=== PATIENT | male | born 1935 | race Caucasian/White ===

== ENCOUNTER 2020-07-02 11:15 | Inpatient (IN) | payer MEDICARE ==
[2020-07-02 12:00] LABS: #Monocytes 1.9 10x3/uL (0.0-1.1); #Neutrophils 9.8 10x3/uL (1.5-8.4); %Basophils 0.2 % (0.0-2.0); %Lymphocytes 3.6 % (18.0-47.0); %Monocytes 15.8 % (0.0-10.0); Hemoglobin 10.9 g/dL (13.5-17.5); Mean Corpuscular HGB CONC 33.6 g/dL (32.0-36.0); Mean Corpuscular Hemoglobin 29.2 pg (27.0-33.0); Mean Corpuscular Volume 86.9 fl (81.2-95.1); Mean Platelet Volume 10.6 fl (7.4-10.4); Platelet Count 167 10x3/uL (150-450); RBC Distribution Width 13.5 % (11.5-14.5); Red Blood Cell (RBC) Count 3.73 10x6/uL (4.32-5.72); White Blood Cell (WBC) Count 12.2 10x3/uL (3.5-10.5)
[2020-07-02 12:14] LABS: ALT (SGPT) 19 U/L (8-55); AST (SGOT) 22 U/L (5-34); Albumin 3.8 g/dL (3.4-4.8); Alkaline Phosphatase 69 U/L (40-110); Anion Gap 12 mmol/L (10-20); BUN (Urea Nitrogen) 16 mg/dL (8.4-25.7); Bilirubin, Total 1.6 mg/dL (0.2-1.2); CK (CPK) 256 U/L (30-200); Calc. Creatinine Clearance 0 mL/min (70-130); Calcium 8.3 mg/dL (7.8-10.44); Carbon Dioxide 22 mmol/L (23-31); Chloride 104 mmol/L (98-107); Globulin 2.1 g/dL (2.4-3.5); Glucose 155 mg/dL (83-110); Magnesium 2.1 mg/dL (1.6-2.6); Potassium 3.5 mmol/L (3.5-5.1); Protein, Total 5.9 g/dL (5.8-8.1); Sodium 134 mmol/L (136-145)
[2020-07-02] MEDS ORDERED: Senokot S 8.6-50 MG TAB PO PRN (14:20)
[2020-07-02] MEDS ORDERED: Ondansetron ODT 4 MG TAB PO PRN (14:20)
[2020-07-02 17:50] VITALS: BMI 21.2
[2020-07-02] MEDS: Famotidine 20 MG TAB PO SCH (22:05)
[2020-07-03 05:46] LABS: #Monocytes 2.3 10x3/uL (0.0-1.1); %Basophils 0.3 % (0.0-2.0); %Eosinophils 0.3 % (0.0-6.0); %Lymphocytes 7.7 % (18.0-47.0); %Monocytes 20.1 % (0.0-10.0); %Neutrophils 71.1 % (40.0-75.0); Hemoglobin 10.1 g/dL (13.5-17.5); Mean Corpuscular HGB CONC 32.7 g/dL (32.0-36.0); Mean Corpuscular Hemoglobin 28.8 pg (27.0-33.0); Mean Platelet Volume 10.2 fl (7.4-10.4); Platelet Count 158 10x3/uL (150-450); RBC Distribution Width 13.6 % (11.5-14.5); Red Blood Cell (RBC) Count 3.51 10x6/uL (4.32-5.72); White Blood Cell (WBC) Count 11.3 10x3/uL (3.5-10.5)
[2020-07-03 06:02] LABS: Anion Gap 13 mmol/L (10-20); BUN (Urea Nitrogen) 12 mg/dL (8.4-25.7); Calc. Creatinine Clearance 88 mL/min (70-130); Calcium 8.3 mg/dL (7.8-10.44); Carbon Dioxide 21 mmol/L (23-31); Chloride 104 mmol/L (98-107); Glucose 102 mg/dL (83-110); Potassium 3.2 mmol/L (3.5-5.1); Sodium 135 mmol/L (136-145)
[2020-07-03] MEDS ORDERED: Potassium Chloride 20 MEQ TAB PO SCH (07:30)
[2020-07-03] MEDS ORDERED: Enoxaparin Sodium 40 MG/0.4 ML SYRINGE SC SCH (09:00)
[2020-07-03] MEDS: Potassium Chloride 10 MEQ TAB PO SCH (09:18)
[2020-07-03] MEDS: Famotidine 20 MG TAB PO SCH ×2 (09:18→20:08)
[2020-07-03] MEDS: Atorvastatin Calcium 20 MG TAB PO SCH (09:18)
[2020-07-03] MEDS: Digoxin 0.25 MG TAB PO SCH (09:18)
[2020-07-03] MEDS: Furosemide 20 MG TAB PO SCH (09:18)
[2020-07-03] MEDS: Apixaban 5 MG TAB PO SCH ×2 (09:18→20:08)
[2020-07-04 05:54] LABS: #Eosinphils 0.1 10x3/uL (0.0-0.5); #Monocytes 1.7 10x3/uL (0.0-1.1); #Neutrophils 5.5 10x3/uL (1.5-8.4); %Basophils 0.5 % (0.0-2.0); %Eosinophils 0.8 % (0.0-6.0); %Lymphocytes 11.4 % (18.0-47.0); %Monocytes 20.5 % (0.0-10.0); %Neutrophils 66.1 % (40.0-75.0); Hemoglobin 10.1 g/dL (13.5-17.5); Mean Corpuscular HGB CONC 32.9 g/dL (32.0-36.0); Mean Corpuscular Hemoglobin 28.6 pg (27.0-33.0); Mean Platelet Volume 10.4 fl (7.4-10.4); Platelet Count 188 10x3/uL (150-450); RBC Distribution Width 13.7 % (11.5-14.5); Red Blood Cell (RBC) Count 3.53 10x6/uL (4.32-5.72); White Blood Cell (WBC) Count 8.4 10x3/uL (3.5-10.5)
[2020-07-04 06:01] LABS: Anion Gap 11 mmol/L (10-20); BUN (Urea Nitrogen) 12 mg/dL (8.4-25.7); Calc. Creatinine Clearance 84 mL/min (70-130); Calcium 8.4 mg/dL (7.8-10.44); Carbon Dioxide 25 mmol/L (23-31); Chloride 104 mmol/L (98-107); Glucose 97 mg/dL (83-110); Potassium 3.5 mmol/L (3.5-5.1); Sodium 136 mmol/L (136-145)
[2020-07-04] MEDS: Apixaban 5 MG TAB PO SCH ×2 (08:42→20:25)
[2020-07-04] MEDS: Digoxin 0.25 MG TAB PO SCH (08:42)
[2020-07-04] MEDS: Atorvastatin Calcium 20 MG TAB PO SCH (08:42)
[2020-07-04] MEDS: Potassium Chloride 10 MEQ TAB PO SCH (08:43)
[2020-07-04] MEDS: Furosemide 20 MG TAB PO SCH (08:43)
[2020-07-04] MEDS: Famotidine 20 MG TAB PO SCH ×2 (08:43→20:26)
[2020-07-04] MEDS: Acetaminophen 325 MG TAB PO PRN ×2 (11:53→20:45)
[2020-07-05 05:44] LABS: #Basophils 0.1 10x3/uL (0.0-0.2); #Eosinphils 0.2 10x3/uL (0.0-0.5); #Monocytes 1.1 10x3/uL (0.0-1.1); #Neutrophils 5.1 10x3/uL (1.5-8.4); %Basophils 0.6 % (0.0-2.0); %Eosinophils 2.7 % (0.0-6.0); %Lymphocytes 15.1 % (18.0-47.0); %Monocytes 14.8 % (0.0-10.0); %Neutrophils 66.3 % (40.0-75.0); Hemoglobin 10.1 g/dL (13.5-17.5); Mean Corpuscular HGB CONC 32.4 g/dL (32.0-36.0); Mean Corpuscular Hemoglobin 28.7 pg (27.0-33.0); Mean Corpuscular Volume 88.6 fl (81.2-95.1); Mean Platelet Volume 10.5 fl (7.4-10.4); Platelet Count 217 10x3/uL (150-450); RBC Distribution Width 13.8 % (11.5-14.5); Red Blood Cell (RBC) Count 3.52 10x6/uL (4.32-5.72); White Blood Cell (WBC) Count 7.7 10x3/uL (3.5-10.5)
[2020-07-05 06:01] LABS: Anion Gap 10 mmol/L (10-20); BUN (Urea Nitrogen) 15 mg/dL (8.4-25.7); Calc. Creatinine Clearance 75 mL/min (70-130); Calcium 8.5 mg/dL (7.8-10.44); Carbon Dioxide 26 mmol/L (23-31); Chloride 106 mmol/L (98-107); Glucose 100 mg/dL (83-110); Potassium 3.6 mmol/L (3.5-5.1); Sodium 138 mmol/L (136-145)
[2020-07-05] MEDS: Atorvastatin Calcium 20 MG TAB PO SCH (08:01)
[2020-07-05] MEDS: Famotidine 20 MG TAB PO SCH ×2 (08:01→20:21)
[2020-07-05] MEDS: Furosemide 20 MG TAB PO SCH (08:01)
[2020-07-05] MEDS: Apixaban 5 MG TAB PO SCH ×2 (08:01→20:21)
[2020-07-05] MEDS: Potassium Chloride 10 MEQ TAB PO SCH (08:01)
[2020-07-05] MEDS: Digoxin 0.25 MG TAB PO SCH (08:36)
[2020-07-05] MEDS: Acetaminophen 325 MG TAB PO PRN (15:35)
[2020-07-05 15:53] LABS: SARS-CoV-2 PCR by NAA Not Detected (NotDetected)
[2020-07-06] MEDS: Acetaminophen 325 MG TAB PO PRN (03:49)
[2020-07-06 05:04] LABS: #Basophils 0.1 10x3/uL (0.0-0.2); #Eosinphils 0.2 10x3/uL (0.0-0.5); #Monocytes 1.3 10x3/uL (0.0-1.1); #Neutrophils 7.4 10x3/uL (1.5-8.4); %Basophils 0.5 % (0.0-2.0); %Lymphocytes 8.2 % (18.0-47.0); %Monocytes 12.9 % (0.0-10.0); %Neutrophils 75.7 % (40.0-75.0); Mean Corpuscular HGB CONC 32.8 g/dL (32.0-36.0); Mean Corpuscular Hemoglobin 28.7 pg (27.0-33.0); Mean Corpuscular Volume 87.4 fl (81.2-95.1); Mean Platelet Volume 10.5 fl (7.4-10.4); Platelet Count 246 10x3/uL (150-450); RBC Distribution Width 13.8 % (11.5-14.5); Red Blood Cell (RBC) Count 3.49 10x6/uL (4.32-5.72); White Blood Cell (WBC) Count 9.7 10x3/uL (3.5-10.5)
[2020-07-06 05:17] LABS: Anion Gap 13 mmol/L (10-20); BUN (Urea Nitrogen) 15 mg/dL (8.4-25.7); Calc. Creatinine Clearance 83 mL/min (70-130); Calcium 8.4 mg/dL (7.8-10.44); Carbon Dioxide 25 mmol/L (23-31); Chloride 104 mmol/L (98-107); Glucose 115 mg/dL (83-110); Magnesium 2.1 mg/dL (1.6-2.6); Potassium 3.8 mmol/L (3.5-5.1); Sodium 138 mmol/L (136-145)
[2020-07-06] MEDS: Potassium Chloride 10 MEQ TAB PO SCH (10:05)
[2020-07-06] MEDS: Metoprolol Tartrate 25 MG TAB PO SCH ×2 (10:06→20:22)
[2020-07-06] MEDS: Furosemide 20 MG TAB PO SCH (10:06)
[2020-07-06] MEDS: Famotidine 20 MG TAB PO SCH ×2 (10:06→20:22)
[2020-07-06] MEDS: Atorvastatin Calcium 20 MG TAB PO SCH (10:06)
[2020-07-06] MEDS: Apixaban 5 MG TAB PO SCH ×2 (10:06→20:22)
[2020-07-07 06:04] LABS: Anion Gap 12 mmol/L (10-20); BUN (Urea Nitrogen) 12 mg/dL (8.4-25.7); Calc. Creatinine Clearance 78 mL/min (70-130); Calcium 8.8 mg/dL (7.8-10.44); Carbon Dioxide 28 mmol/L (23-31); Chloride 102 mmol/L (98-107); Glucose 94 mg/dL (83-110); Magnesium 2.3 mg/dL (1.6-2.6); Potassium 4.1 mmol/L (3.5-5.1); Sodium 138 mmol/L (136-145)
[2020-07-07] MEDS: Metoprolol Tartrate 25 MG TAB PO SCH ×2 (09:16→20:54)
[2020-07-07] MEDS: Furosemide 20 MG TAB PO SCH (09:16)
[2020-07-07] MEDS: Potassium Chloride 10 MEQ TAB PO SCH (09:18)
[2020-07-07] MEDS: Atorvastatin Calcium 20 MG TAB PO SCH (09:18)
[2020-07-07] MEDS: Apixaban 5 MG TAB PO SCH ×2 (09:18→20:54)
[2020-07-07] MEDS: Famotidine 20 MG TAB PO SCH ×2 (09:18→20:54)
[2020-07-08 05:37] LABS: Anion Gap 11 mmol/L (10-20); BUN (Urea Nitrogen) 15 mg/dL (8.4-25.7); Calc. Creatinine Clearance 79 mL/min (70-130); Calcium 8.8 mg/dL (7.8-10.44); Carbon Dioxide 27 mmol/L (23-31); Chloride 103 mmol/L (98-107); Glucose 100 mg/dL (83-110); Magnesium 2.4 mg/dL (1.6-2.6); Potassium 4.1 mmol/L (3.5-5.1); Sodium 137 mmol/L (136-145)
[2020-07-08] MEDS: Famotidine 20 MG TAB PO SCH ×2 (10:17→21:31)
[2020-07-08] MEDS: Atorvastatin Calcium 20 MG TAB PO SCH (10:17)
[2020-07-08] MEDS: Potassium Chloride 10 MEQ TAB PO SCH (10:17)
[2020-07-08] MEDS: Apixaban 5 MG TAB PO SCH ×2 (10:17→21:31)
[2020-07-08] MEDS: Metoprolol Tartrate 25 MG TAB PO SCH ×2 (10:18→21:31)
[2020-07-08] MEDS: Furosemide 20 MG TAB PO SCH (10:20)
[2020-07-09] MEDS: Apixaban 5 MG TAB PO SCH ×2 (08:28→20:00)
[2020-07-09] MEDS: Atorvastatin Calcium 20 MG TAB PO SCH (08:28)
[2020-07-09] MEDS: Potassium Chloride 10 MEQ TAB PO SCH (08:28)
[2020-07-09] MEDS: Famotidine 20 MG TAB PO SCH ×2 (08:28→20:00)
[2020-07-09] MEDS: Metoprolol Tartrate 25 MG TAB PO SCH (08:29)
[2020-07-09] MEDS: Furosemide 20 MG TAB PO SCH (08:29)
[2020-07-10] MEDS: Metoprolol Tartrate 25 MG TAB PO SCH ×3 (00:08→21:35)
[2020-07-10] MEDS: Potassium Chloride 10 MEQ TAB PO SCH (09:09)
[2020-07-10] MEDS: Apixaban 5 MG TAB PO SCH ×2 (09:09→21:34)
[2020-07-10] MEDS: Atorvastatin Calcium 20 MG TAB PO SCH (09:09)
[2020-07-10] MEDS: Furosemide 20 MG TAB PO SCH (09:09)
[2020-07-10] MEDS: Famotidine 20 MG TAB PO SCH ×2 (09:09→21:34)
[2020-07-11] MEDS: Potassium Chloride 10 MEQ TAB PO SCH (08:48)
[2020-07-11] MEDS: Famotidine 20 MG TAB PO SCH ×2 (08:48→20:20)
[2020-07-11] MEDS: Apixaban 5 MG TAB PO SCH ×2 (08:48→20:20)
[2020-07-11] MEDS: Atorvastatin Calcium 20 MG TAB PO SCH (08:48)
[2020-07-11] MEDS: Metoprolol Tartrate 25 MG TAB PO SCH ×2 (08:48→20:20)
[2020-07-11] MEDS: Furosemide 20 MG TAB PO SCH (08:48)
[2020-07-12] MEDS: Metoprolol Tartrate 25 MG TAB PO SCH ×2 (09:36→20:10)
[2020-07-12] MEDS: Atorvastatin Calcium 20 MG TAB PO SCH (09:36)
[2020-07-12] MEDS: Furosemide 20 MG TAB PO SCH (09:36)
[2020-07-12] MEDS: Famotidine 20 MG TAB PO SCH ×2 (09:37→20:09)
[2020-07-12] MEDS: Apixaban 5 MG TAB PO SCH ×2 (09:37→20:09)
[2020-07-12] MEDS: Potassium Chloride 10 MEQ TAB PO SCH (09:37)
[2020-07-13] MEDS: Potassium Chloride 10 MEQ TAB PO SCH (07:51)
[2020-07-13] MEDS: Furosemide 20 MG TAB PO SCH (07:52)
[2020-07-13] MEDS: Metoprolol Tartrate 25 MG TAB PO SCH ×2 (07:52→20:43)
[2020-07-13] MEDS: Atorvastatin Calcium 20 MG TAB PO SCH (07:52)
[2020-07-13] MEDS: Famotidine 20 MG TAB PO SCH ×2 (07:53→20:45)
[2020-07-13] MEDS: Apixaban 5 MG TAB PO SCH ×2 (07:53→20:45)
[2020-07-14] MEDS: Furosemide 20 MG TAB PO SCH (08:52)
[2020-07-14] MEDS: Apixaban 5 MG TAB PO SCH ×2 (08:52→20:07)
[2020-07-14] MEDS: Potassium Chloride 10 MEQ TAB PO SCH (08:52)
[2020-07-14] MEDS: Famotidine 20 MG TAB PO SCH ×2 (08:52→20:07)
[2020-07-14] MEDS: Metoprolol Tartrate 25 MG TAB PO SCH ×2 (08:52→20:07)
[2020-07-14] MEDS: Atorvastatin Calcium 20 MG TAB PO SCH (08:52)
[2020-07-14] MEDS: Guaifenesin DM 100-10/5 ML UDCUP PO PRN (18:41)
[2020-07-15] MEDS: Guaifenesin DM 100-10/5 ML UDCUP PO PRN ×2 (02:56→11:49)
[2020-07-15] MEDS: Metoprolol Tartrate 25 MG TAB PO SCH ×2 (07:41→21:00)
[2020-07-15] MEDS: Famotidine 20 MG TAB PO SCH ×2 (07:42→21:28)
[2020-07-15] MEDS: Potassium Chloride 10 MEQ TAB PO SCH (07:42)
[2020-07-15] MEDS: Furosemide 20 MG TAB PO SCH (07:42)
[2020-07-15] MEDS: Apixaban 5 MG TAB PO SCH ×2 (07:42→21:28)
[2020-07-15] MEDS: Atorvastatin Calcium 20 MG TAB PO SCH (07:42)
[2020-07-16] MEDS: Atorvastatin Calcium 20 MG TAB PO SCH (08:30)
[2020-07-16] MEDS: Metoprolol Tartrate 25 MG TAB PO SCH ×2 (08:30→20:46)
[2020-07-16] MEDS: Famotidine 20 MG TAB PO SCH ×2 (08:32→20:12)
[2020-07-16] MEDS: Furosemide 20 MG TAB PO SCH (08:32)
[2020-07-16] MEDS: Apixaban 5 MG TAB PO SCH ×2 (08:32→20:13)
[2020-07-16] MEDS: Potassium Chloride 10 MEQ TAB PO SCH (08:32)
[2020-07-16] MEDS: Acetaminophen 325 MG TAB PO PRN (20:14)
[2020-07-16] MEDS: Guaifenesin DM 100-10/5 ML UDCUP PO PRN (20:48)
[2020-07-17] MEDS: Guaifenesin DM 100-10/5 ML UDCUP PO PRN ×2 (01:18→20:14)
[2020-07-17] MEDS: Atorvastatin Calcium 20 MG TAB PO SCH (10:27)
[2020-07-17] MEDS: Apixaban 5 MG TAB PO SCH ×2 (10:27→20:13)
[2020-07-17] MEDS: Famotidine 20 MG TAB PO SCH ×2 (10:27→20:13)
[2020-07-17] MEDS: Furosemide 20 MG TAB PO SCH (10:27)
[2020-07-17] MEDS: Potassium Chloride 10 MEQ TAB PO SCH (10:28)
[2020-07-17] MEDS: Metoprolol Tartrate 25 MG TAB PO SCH ×2 (10:28→20:13)
[2020-07-17] MEDS: Acetaminophen 325 MG TAB PO PRN (20:13)
[2020-07-18] MEDS: Metoprolol Tartrate 25 MG TAB PO SCH (07:56)
[2020-07-18] MEDS: Potassium Chloride 10 MEQ TAB PO SCH (07:56)
[2020-07-18] MEDS: Furosemide 20 MG TAB PO SCH (07:56)
[2020-07-18] MEDS: Apixaban 5 MG TAB PO SCH (07:56)
[2020-07-18] MEDS: Guaifenesin DM 100-10/5 ML UDCUP PO PRN (07:56)
[2020-07-18] MEDS: Atorvastatin Calcium 20 MG TAB PO SCH (07:56)
[2020-07-18] MEDS: Famotidine 20 MG TAB PO SCH (07:56)
[2020-07-18 11:48] VITALS: BP 104/67; TEMP 98.4
== END 2020-07-18 11:59 | DRG 309 ==
LOC: CSHERS 11:15 → CSHTELE 14:20 → INTOOBSV 15:09 → CSHTELE 15:09 → UNDOADMOB 15:09 → OBSVTOIN 07-03 16:23
PROVIDERS: ADMIT Family Medicine; ATTEND Family Medicine
DX: I49.5 Sick sinus syndrome (principal); I48.11 Longstanding persistent atrial fibrillation; I50.22 Chronic systolic (congestive) heart failure; Z20.822 Contact with and (suspected) exposure to COVID-19; G20 Parkinson's disease; Z66 Do not resuscitate; I10 Essential (primary) hypertension; Z96.651 Presence of right artificial knee joint; E78.5 Hyperlipidemia, unspecified; I25.10 Atherosclerotic heart disease of native coronary artery without angina pectoris; I11.0 Hypertensive heart disease with heart failure; F02.80 Dementia in other diseases classified elsewhere, unspecified severity, without behavioral disturbance, psychotic disturbance, mood disturbance, and anxiety; W19.XXXA Unspecified fall, initial encounter; R05 Cough; Z79.02 Long term (current) use of antithrombotics/antiplatelets; Z79.899 Other long term (current) drug therapy; I27.20 Pulmonary hypertension, unspecified; M54.9 Dorsalgia, unspecified; I73.9 Peripheral vascular disease, unspecified
CPT/HCPCS: 36415; 70450; 70551; 71045; 72125; 80048; 80053; 81003; 81015; 82550; 83605; 83735; 84443; 84484; 85025; 87086; 87635; 93005; 93306; 93880; G0378; U0003; U0005